=== PATIENT | female | born 1950 | race Two or more races ===

== ENCOUNTER 2021-12-23 14:54 | Inpatient (IN) | payer MEDICARE, OTHER ==
[~2021-12-23] VITALS: Ht 172.7 cm; Wt 107.5 kg
[2021-12-23 16:36] LABS: BASOPHILS % (AUTO) 0.2 % (0.0-2.0); HEMATOCRIT 24 % (33-45); HEMOGLOBIN 7.8 g/dL (11.5-14.8); LYMPHOCYTES # (AUTO) 0.4 K/uL (0.8-4.8); LYMPHOCYTES % (AUTO) 3.7 % (20.0-44.0); MEAN CORPUSCULAR HGB CONC 32 g/dl (31.0-36.0); MEAN CORPUSCULAR VOLUME 96 fL (82-100); MONOCYTES # (AUTO) 0.5 K/uL (0.1-1.30); MONOCYTES % (AUTO) 5.6 % (2.0-12.0); NEUTROPHILS # (AUTO) 8.8 K/uL (1.8-8.9); NEUTROPHILS % (AUTO) 90.5 % (43.0-81.0); PLATELET COUNT (AUTO) 63 K/uL (150-450); RED BLOOD CELL COUNT(AUTO) 2.54 MIL/uL (4.0-5.2); WHITE BLOOD COUNT (AUTO) 9.7 K/uL (4.3-11.0)
[2021-12-23 17:02] LABS: ALANINE AMINOTRANSFERASE 56 U/L (12-78); ALBUMIN 2.8 g/dL (3.4-5.0); ALCOHOL, BLOOD < 3 mg/dL (0-0); ALKALINE PHOSPHATASE 166 U/L (46-116); ASPARTATE AMINOTRANSFERASE 192 U/L (15-37); BILIRUBIN,DIRECT 1.3 mg/dL (0.0-0.2); CARBON DIOXIDE 19 mmol/L (21-32); CHLORIDE 108 mmol/L (98-107); CREATININE 2.5 mg/dL (0.6-1.3); GLUCOSE 158 mg/dL (74-106); POTASSIUM 4.8 mmol/L (3.5-5.1); SODIUM SERUM 143 mmol/L (136-145); TOTAL PROTEIN, SERUM 6.5 g/dL (6.4-8.2)
[2021-12-23 17:06] LABS: CREATINE KINASE, TOTAL 4534 U/L (26-192); THYROID STIMULATING HORMONE 4.328 uIU/mL (0.358-3.74)
[2021-12-23 17:19] LABS: UREA NITROGEN, BLOOD 81 mg/dL (7-18)
[2021-12-23 17:26] LABS: ACETAMINOPHEN < 2 ug/ml (10-30)
[2021-12-23 17:52] LABS: BILIRUBIN,URINE NEGATIVE (NEGATIVE); COLOR,URINE YELLOW (YELLOW); LEUKOCYTE ESTERASE ,URINE NEGATIVE (NEGATIVE); NITRITE, URINE NEGATIVE (NEGATIVE); PROTEIN,URINE TRACE mg/dl (NEGATIVE); UGLUCOSE NEGATIVE (NEGATIVE)
[2021-12-23 17:58] LABS: BACTERIA,URINE RARE /HPF (None Seen); RBC,URINE 21-50 /HPF (0-2); WBC,URINE 0-2 /HPF (0-3); YEAST,URINE Few /HPF (None Seen)
[2021-12-23] MEDS ORDERED: INSU100I14 SQ (18:12)
[2021-12-23] MEDS ORDERED: POLY15DR40 EACHEYE (18:12)
[2021-12-23] MEDS ORDERED: SENN-261 PO (18:12)
[2021-12-23] MEDS ORDERED: PREG-57 PO (18:12)
[2021-12-23] MEDS ORDERED: LIDO700A30 TP (18:12)
[2021-12-23] MEDS ORDERED: FURO20TA4 PO (18:12)
[2021-12-23] MEDS ORDERED: ERGO500093 PO (18:12)
[2021-12-23] MEDS ORDERED: INSU100I19 SQ (18:12)
[2021-12-23] MEDS ORDERED: PANT40TA49 PO (18:12)
[2021-12-23] MEDS ORDERED: ALPR0.5T8 PO (18:12)
[2021-12-23] MEDS ORDERED: INSU100V39 SQ (18:12)
[2021-12-23] MEDS ORDERED: SUCR1ORA6 PO (18:12)
[2021-12-23] MEDS ORDERED: HYDR-3980 PO (18:12)
[2021-12-23 18:26] LABS: BAND % (MANUAL) 11 % (0.0-5.0); LYMPHOCYTES % (MANUAL) 7 % (16-48); MONOCYTES % (MANUAL) 1 % (0-11.0); NEUTROPHILS % (MANUAL) 81 (42-76)
[2021-12-23] MEDS ORDERED: IV NS 0.9% 1,000 ML BAG IV ONE (18:30)
[2021-12-23 18:42] LABS: SERUM AMMONIA 20 umol/L (11-32)
[2021-12-23] MEDS ORDERED: ASPIRIN 300 MG/SUPP.RECT RC ONE (19:00)
[2021-12-23 20:00] VITALS: BP 125/56
[2021-12-23] MEDS ORDERED: FUROSEMIDE 20 MG/2 ML VIAL IV SCH (20:00)
[2021-12-23] MEDS ORDERED: ACETAMINOPHEN 650 MG/SUPP.RECT RC PRN (20:00)
[2021-12-23] MEDS ORDERED: ONDANSETRON HCL/PF 4 MG/2 ML VIAL IVP PRN (20:00)
[2021-12-23] MEDS ORDERED: Z GUARD REMEDY 4 OZ OINT TP PRN (20:00)
[2021-12-23] MEDS ORDERED: ACETAMINOPHEN 325 MG TABLET PO PRN (20:00)
[2021-12-23] MEDS ORDERED: FUROSEMIDE 40 MG/4 ML VIAL IV SCH (21:30)
[2021-12-23] MEDS ORDERED: IV LR 500 ML IV ONE (21:30)
[2021-12-23] MEDS: KETOROLAC TROMETHAMINE INJ 30 MG/ML VIAL IV PRN (22:52)
[2021-12-24] VITALS (71 sets, daily range): BP systolic 80–145; BP diastolic 37–79
[2021-12-24] MEDS ORDERED: DEXTROSE 50%-WATER 50 ML DISP.SYRIN IV PRN ×2 (00:30)
[2021-12-24] MEDS ORDERED: LIDOCAINE 5% (PATCH) 1 EA PATCH TP PRN (00:30)
[2021-12-24] MEDS: FUROSEMIDE 40 MG/4 ML VIAL IV SCH ×3 (01:28→16:14)
[2021-12-24] MEDS ORDERED: CEFEPIME 1 GM in IV D5W 50 ML IV SCH ×2 (01:30→21:00)
[2021-12-24] MEDS ORDERED: CEFEPIME 1 GM VIAL ONE ×2 (02:09→22:06)
[2021-12-24] MEDS: BLOOD SUGAR DIAGNOSTIC 1 EACH STRIP IN SCH ×7 (06:28→22:00)
[2021-12-24 06:43] LABS: CALCIUM, SERUM 8.5 mg/dL (8.5-10.1); CREATININE 2.5 mg/dL (0.6-1.3); POTASSIUM 4.4 mmol/L (3.5-5.1)
[2021-12-24 06:46] LABS: MAGNESIUM 2.4 mg/dL (1.8-2.4); PHOSPHORUS 4.3 mg/dL (2.5-4.9)
[2021-12-24] MEDS ORDERED: PANTOPRAZOLE 40 MG TABLET.DR PO SCH (07:30)
[2021-12-24 07:37] LABS: THYROID STIMULATING HORMONE 3.014 uIU/mL (0.358-3.74)
[2021-12-24] MEDS ORDERED: IV NS 0.9% 250 ML IV ONE (08:30)
[2021-12-24] MEDS ORDERED: ERGOCALCIFEROL (VITAMIN D 2) 50,000 UNIT CAPSULE PO SCH (09:00)
[2021-12-24] MEDS: INSULIN ASPART/LISPRO 100 UNIT/ML CARTRIDGE SQ SCH ×3 (09:00→16:14)
[2021-12-24] MEDS: INSULIN GLARGINE, 100 UNIT/ML CARTRIDGE SQ SCH ×2 (09:00→16:13)
[2021-12-24] MEDS: SUCRALFATE 1 G/10 ML UDC PO SCH ×4 (09:00→21:00)
[2021-12-24 09:14] LABS: EOSINOPHILS % (AUTO) 0.6 % (0.0-6.0); HEMATOCRIT 22 % (33-45); LYMPHOCYTES # (AUTO) 0.1 K/uL (0.8-4.8); LYMPHOCYTES % (AUTO) 10.5 % (20.0-44.0); MEAN CORPUSCULAR HGB CONC 32 g/dl (31.0-36.0); MEAN CORPUSCULAR VOLUME 98 fL (82-100); MONOCYTES % (AUTO) 2.2 % (2.0-12.0); NEUTROPHILS % (AUTO) 86.7 % (43.0-81.0); RED BLOOD CELL COUNT(AUTO) 2.21 MIL/uL (4.0-5.2)
[2021-12-24 09:19] LABS: HEMOGLOBIN 6.8 g/dL (11.5-14.8); WHITE BLOOD COUNT (AUTO) 1.2 K/uL (4.3-11.0)
[2021-12-24 09:20] LABS: PLATELET COUNT (AUTO) 38 K/uL (150-450)
[2021-12-24] MEDS: PANTOPRAZOLE 40 MG VIAL IV SCH (09:24)
[2021-12-24] MEDS ORDERED: NOREPINEPHRINE 8 MG in IV NS 0.9% 242 ML IV PRN (10:00)
[2021-12-24] MEDS: ASPIRIN 300 MG/SUPP.RECT RC SCH (10:05)
[2021-12-24] MEDS ORDERED: SODIUM BICARBONATE SYR 50 MEQ/50 ML DISP.SYRIN IV STA (12:47)
[2021-12-24] MEDS: Sodium Bicarbonate 100 MEQ in IV D5W 1,000 ML IV SCH (14:16)
[2021-12-24] MEDS: NOREPINEPHRINE 8 MG in IV NS 0.9% 242 ML IV PRN ×2 (14:29→21:20)
[2021-12-24 15:49] LABS: BAND % (MANUAL) 4 % (0.0-5.0); LYMPHOCYTES % (MANUAL) 12 % (16-48)
[2021-12-24 15:50] LABS: MONOCYTES % (MANUAL) 2 % (0-11.0); NEUTROPHILS % (MANUAL) 82 (42-76)
[2021-12-24] MEDS: CLOTRIMAZOLE 1% 15 GM TUBE TP SCH (16:14)
[2021-12-24] MEDS: KETOROLAC TROMETHAMINE INJ 30 MG/ML VIAL IV PRN (20:14)
[2021-12-24] MEDS: SENNOSIDES 8.6 MG TABLET PO SCH (21:59)
[2021-12-24] MEDS: PREGABALIN 25 MG CAPSULE PO SCH (21:59)
[2021-12-24] MEDS: CEFEPIME 2 GM in IV D5W 100 ML IV SCH (22:10)
[2021-12-25] VITALS (92 sets, daily range): BP systolic 81–133; BP diastolic 30–72
[2021-12-25] MEDS: BLOOD SUGAR DIAGNOSTIC 1 EACH STRIP IN SCH ×6 (00:44→21:59)
[2021-12-25] MEDS: INSULIN REGULAR, HUMAN 100 UNIT/ML 3 ML VIAL SQ PRN ×2 (00:44→06:49)
[2021-12-25] MEDS ORDERED: NOREPINEPHRINE 8MG/250ML RTU 250 ML IV ONE (03:17)
[2021-12-25] MEDS: NOREPINEPHRINE 8 MG in IV NS 0.9% 242 ML IV PRN ×3 (03:34→18:12)
[2021-12-25] MEDS: Sodium Bicarbonate 100 MEQ in IV D5W 1,000 ML IV SCH ×2 (04:26→18:35)
[2021-12-25 04:36] LABS: BASOPHILS % (AUTO) 0.2 % (0.0-2.0); EOSINOPHILS % (AUTO) 3.6 % (0.0-6.0); HEMATOCRIT 31 % (33-45); LYMPHOCYTES # (AUTO) 0.4 K/uL (0.8-4.8); LYMPHOCYTES % (AUTO) 5.3 % (20.0-44.0); MEAN CORPUSCULAR HGB CONC 32 g/dl (31.0-36.0); MEAN CORPUSCULAR VOLUME 96 fL (82-100); MONOCYTES # (AUTO) 0.5 K/uL (0.1-1.30); MONOCYTES % (AUTO) 6.2 % (2.0-12.0); NEUTROPHILS # (AUTO) 6.8 K/uL (1.8-8.9); NEUTROPHILS % (AUTO) 84.7 % (43.0-81.0); RED BLOOD CELL COUNT(AUTO) 3.23 MIL/uL (4.0-5.2); WHITE BLOOD COUNT (AUTO) 8.1 K/uL (4.3-11.0)
[2021-12-25 05:00] LABS: PLATELET COUNT (AUTO) 43 K/uL (150-450)
[2021-12-25 05:01] LABS: BILIRUBIN,TOTAL 5.5 mg/dL (0.2-1.0); CALCIUM, SERUM 8.6 mg/dL (8.5-10.1); CREATININE 2.8 mg/dL (0.6-1.3); MAGNESIUM 2.7 mg/dL (1.8-2.4); PHOSPHORUS 4.9 mg/dL (2.5-4.9); POTASSIUM 4.4 mmol/L (3.5-5.1); TOTAL PROTEIN, SERUM 5.2 g/dL (6.4-8.2)
[2021-12-25 05:02] LABS: BAND % (MANUAL) 2 % (0.0-5.0); EOSINOPHILS % (MANUAL) 4 % (0-4); LYMPHOCYTES % (MANUAL) 8 % (16-48); MONOCYTES % (MANUAL) 4 % (0-11.0)
[2021-12-25 05:03] LABS: NEUTROPHILS % (MANUAL) 82 (42-76)
[2021-12-25 05:10] LABS: BILIRUBIN,URINE NEGATIVE (NEGATIVE); COLOR,URINE YELLOW (YELLOW); LEUKOCYTE ESTERASE ,URINE TRACE (NEGATIVE); NITRITE, URINE NEGATIVE (NEGATIVE); PROTEIN,URINE 30 mg/dl (NEGATIVE); UGLUCOSE NEGATIVE (NEGATIVE); UROBILINOGEN,URINE 0.2 EU/dL (0.2)
[2021-12-25 05:26] LABS: CREATININE, URINE 132.2 MG/DL (30.0-125.0)
[2021-12-25 05:46] LABS: BACTERIA,URINE Many /HPF (None Seen); SQUAMOUS EPITHELIAL CELL,UR Many /HPF (None Seen)
[2021-12-25 05:47] LABS: YEAST,URINE Many /HPF (None Seen)
[2021-12-25 06:04] LABS: OCCULT BLOOD STOOL POSITIVE (NEGATIVE)
[2021-12-25] MEDS: INSULIN ASPART/LISPRO 100 UNIT/ML CARTRIDGE SQ SCH ×3 (09:00→17:40)
[2021-12-25] MEDS: PANTOPRAZOLE 40 MG VIAL IV SCH (09:00)
[2021-12-25] MEDS: INSULIN GLARGINE, 100 UNIT/ML CARTRIDGE SQ SCH ×2 (09:00→17:00)
[2021-12-25] MEDS: SUCRALFATE 1 G/10 ML UDC PO SCH ×4 (09:00→21:00)
[2021-12-25] MEDS: ASPIRIN 300 MG/SUPP.RECT RC SCH (09:00)
[2021-12-25] MEDS: FUROSEMIDE 40 MG/4 ML VIAL IV SCH ×2 (09:02→17:38)
[2021-12-25] MEDS: CLOTRIMAZOLE 1% 15 GM TUBE TP SCH ×2 (09:19→17:17)
[2021-12-25 12:13] LABS: ABG BASE EXCESS -10.6 mmol/L; ABG PCO2 36.7 mmHg (35.0-45.0); ABG PH 7.251 (7.350-7.450); ABG PO2 131.2 mmHg (75.0-100.0); AaDO2 75.7 mmHg; COHb 1.2 % (0.5-1.5); MetHb 0.2 % (0.0-1.5); O2Hb 96.6 % (94.0-97.0); SITE, ABG Right Brachial; VENT MODE, BG 4l nasal can
[2021-12-25] MEDS ORDERED: IV NS 0.9% 250 ML IV ONE (12:30)
[2021-12-25] MEDS: ALBUMIN 25% 25 GM in PREMIX 1 EA IV SCH ×2 (13:31→18:24)
[2021-12-25] MEDS: KETOROLAC TROMETHAMINE INJ 30 MG/ML VIAL IV PRN (18:13)
[2021-12-25] MEDS: CEFEPIME 2 GM in IV D5W 100 ML IV SCH (21:43)
[2021-12-25] MEDS: SENNOSIDES 8.6 MG TABLET PO SCH (22:30)
[2021-12-25] MEDS: PREGABALIN 25 MG CAPSULE PO SCH (22:30)
[2021-12-26] VITALS (96 sets, daily range): BP systolic 85–132; BP diastolic 18–101
[2021-12-26] MEDS: ALBUMIN 25% 25 GM in PREMIX 1 EA IV SCH ×2 (01:03→06:20)
[2021-12-26] MEDS: NOREPINEPHRINE 8 MG in IV NS 0.9% 242 ML IV PRN ×3 (03:58→21:32)
[2021-12-26] MEDS: KETOROLAC TROMETHAMINE INJ 30 MG/ML VIAL IV PRN ×3 (04:44→22:18)
[2021-12-26 04:56] LABS: EOSINOPHILS % (AUTO) 0.5 % (0.0-6.0); HEMATOCRIT 27 % (33-45); HEMOGLOBIN 8.5 g/dL (11.5-14.8); LYMPHOCYTES % (AUTO) 5.5 % (20.0-44.0); MEAN CORPUSCULAR HGB CONC 31 g/dl (31.0-36.0); MEAN CORPUSCULAR VOLUME 98 fL (82-100); MONOCYTES # (AUTO) 0.9 K/uL (0.1-1.30); MONOCYTES % (AUTO) 4.7 % (2.0-12.0); NEUTROPHILS % (AUTO) 89.3 % (43.0-81.0); RED BLOOD CELL COUNT(AUTO) 2.78 MIL/uL (4.0-5.2)
[2021-12-26 05:06] LABS: PLATELET COUNT (AUTO) 39 K/uL (150-450)
[2021-12-26 05:23] LABS: CALCIUM, SERUM 9.1 mg/dL (8.5-10.1); CREATININE 3.1 mg/dL (0.6-1.3); MAGNESIUM 2.6 mg/dL (1.8-2.4); POTASSIUM 4.6 mmol/L (3.5-5.1)
[2021-12-26 05:25] LABS: BAND % (MANUAL) 3 % (0.0-5.0); EOSINOPHILS % (MANUAL) 1 % (0-4); LYMPHOCYTES % (MANUAL) 7 % (16-48); MONOCYTES % (MANUAL) 3 % (0-11.0)
[2021-12-26 05:26] LABS: NEUTROPHILS % (MANUAL) 86 (42-76)
[2021-12-26] MEDS: Sodium Bicarbonate 100 MEQ in IV D5W 1,000 ML IV SCH ×2 (07:40→21:31)
[2021-12-26] MEDS: BLOOD SUGAR DIAGNOSTIC 1 EACH STRIP IN SCH ×5 (08:07→22:08)
[2021-12-26] MEDS: FUROSEMIDE 40 MG/4 ML VIAL IV SCH ×2 (08:23→17:22)
[2021-12-26] MEDS: PANTOPRAZOLE 40 MG VIAL IV SCH (08:23)
[2021-12-26] MEDS: ASPIRIN 300 MG/SUPP.RECT RC SCH (08:23)
[2021-12-26] MEDS: INSULIN GLARGINE, 100 UNIT/ML CARTRIDGE SQ SCH ×2 (08:27→17:32)
[2021-12-26] MEDS: CLOTRIMAZOLE 1% 15 GM TUBE TP SCH ×2 (08:31→17:22)
[2021-12-26] MEDS: SUCRALFATE 1 G/10 ML UDC PO SCH ×4 (08:45→22:00)
[2021-12-26] MEDS: INSULIN ASPART/LISPRO 100 UNIT/ML CARTRIDGE SQ SCH ×3 (08:45→17:00)
[2021-12-26] MEDS: SILDENAFIL CITRATE 20 MG TABLET PO SCH ×2 (13:00→16:12)
[2021-12-26] MEDS: FENTANYL PF 100MCG/2ML AMPUL IV PRN ×2 (13:26→15:45)
[2021-12-26] MEDS: MIDODRINE HCL (5MG) 5 MG TABLET NG SCH (17:30)
[2021-12-26] MEDS: CEFEPIME 2 GM in IV D5W 100 ML IV SCH (21:32)
[2021-12-26] MEDS: SENNOSIDES 8.6 MG TABLET PO SCH (22:00)
[2021-12-26] MEDS: PREGABALIN 25 MG CAPSULE PO SCH (22:00)
[2021-12-26] MEDS: INSULIN REGULAR, HUMAN 100 UNIT/ML 3 ML VIAL SQ PRN (22:12)
[2021-12-27] VITALS (49 sets, daily range): BP systolic 85–143; BP diastolic 24–56
[2021-12-27 05:02] LABS: EOSINOPHILS % (AUTO) 1.6 % (0.0-6.0); HEMATOCRIT 24 % (33-45); LYMPHOCYTES # (AUTO) 0.7 K/uL (0.8-4.8); LYMPHOCYTES % (AUTO) 6.6 % (20.0-44.0); MEAN CORPUSCULAR HGB CONC 33 g/dl (31.0-36.0); MEAN CORPUSCULAR VOLUME 95 fL (82-100); MONOCYTES # (AUTO) 0.3 K/uL (0.1-1.30); MONOCYTES % (AUTO) 3.1 % (2.0-12.0); NEUTROPHILS # (AUTO) 9.7 K/uL (1.8-8.9); NEUTROPHILS % (AUTO) 88.7 % (43.0-81.0); RED BLOOD CELL COUNT(AUTO) 2.54 MIL/uL (4.0-5.2)
[2021-12-27 05:03] LABS: CALCIUM, SERUM 8.9 mg/dL (8.5-10.1); MAGNESIUM 2.6 mg/dL (1.8-2.4); PHOSPHORUS 4.2 mg/dL (2.5-4.9); POTASSIUM 4.6 mmol/L (3.5-5.1)
[2021-12-27 05:53] LABS: PLATELET COUNT (AUTO) 24 K/uL (150-450)
[2021-12-27] MEDS: PANTOPRAZOLE 40 MG VIAL IV SCH (08:36)
[2021-12-27] MEDS: FUROSEMIDE 40 MG/4 ML VIAL IV SCH (08:36)
[2021-12-27] MEDS: MIDODRINE HCL (5MG) 5 MG TABLET NG SCH (08:37)
[2021-12-27] MEDS: SUCRALFATE 1 G/10 ML UDC PO SCH (09:00)
[2021-12-27] MEDS: SILDENAFIL CITRATE 20 MG TABLET PO SCH (09:00)
[2021-12-27] MEDS: NOREPINEPHRINE 8 MG in IV NS 0.9% 242 ML IV PRN (09:14)
[2021-12-27 09:39] LABS: BAND % (MANUAL) 6 % (0.0-5.0); NEUTROPHILS % (MANUAL) 83 (42-76)
[2021-12-27 09:40] LABS: EOSINOPHILS % (MANUAL) 1 % (0-4); LYMPHOCYTES % (MANUAL) 6 % (16-48); MONOCYTES % (MANUAL) 4 % (0-11.0)
[2021-12-27] MEDS: BLOOD SUGAR DIAGNOSTIC 1 EACH STRIP IN SCH (09:48)
[2021-12-27] MEDS: CLOTRIMAZOLE 1% 15 GM TUBE TP SCH ×2 (09:58→17:00)
[2021-12-27] MEDS: INSULIN ASPART/LISPRO 100 UNIT/ML CARTRIDGE SQ SCH (10:00)
[2021-12-27] MEDS: INSULIN GLARGINE, 100 UNIT/ML CARTRIDGE SQ SCH (10:00)
[2021-12-27] MEDS: FENTANYL PF 100MCG/2ML AMPUL IV PRN (10:06)
[2021-12-27] MEDS ORDERED: LORAZEPAM INJ 2 MG/ML VIAL IV STA (10:46)
[2021-12-27] MEDS ORDERED: Sodium Bicarbonate 100 MEQ in IV D5W 1,000 ML IV SCH (11:00)
[2021-12-27] MEDS ORDERED: LORAZEPAM INJ 2 MG/ML VIAL IV PRN (11:00)
[2021-12-27] MEDS ORDERED: MORPHINE SULFATE INJ 4 MG/ML DISP.SYRIN IV STA (12:04)
[2021-12-27] MEDS ORDERED: MORPHINE SULFATE PF DRIP 250 MG in IV D5W 240 ML IV PRN (13:00)
[2021-12-27] MEDS ORDERED: CEFTRIAXONE 2 G in IV D5W 100 ML IV SCH (21:00)
[2021-12-27] MEDS ORDERED: KEY,NONCONTROL,TO KEEP IN PYXI 1 EA MC ONE (21:32)
== END 2021-12-27 19:37 | disposition hospice, inpatient (51) | DRG 280 ==
LOC: ER 15:00 → EDBD 15:00 → TELE-TD 19:42 → TELE1 21:11 → ICU 12-24 09:42 → MED 12-27 16:48
PROVIDERS: ADMIT Registered Nurse; ATTEND Nurse Practitioner Acute Care
PROC: 05H933Z Insertion of Infusion Device into Right Brachial Vein, Percutaneous Approach (ICD-10-PCS; principal; 2021-12-24)
PROC: 30233N1 Transfusion of Nonautologous Red Blood Cells into Peripheral Vein, Percutaneous Approach (ICD-10-PCS; 2021-12-24)
PROC: 06HY33Z Insertion of Infusion Device into Lower Vein, Percutaneous Approach (ICD-10-PCS; 2021-12-26)
PROC: 5A1D70Z Performance of Urinary Filtration, Intermittent, Less than 6 Hours Per Day (ICD-10-PCS; 2021-12-27)
DX: I13.0 Hypertensive heart and chronic kidney disease with heart failure and stage 1 through stage 4 chronic kidney disease, or unspecified chronic kidney disease (principal); G92.8 Other toxic encephalopathy; I21.A1 Myocardial infarction type 2; J15.9 Unspecified bacterial pneumonia; J96.01 Acute respiratory failure with hypoxia; N17.0 Acute kidney failure with tubular necrosis; I50.33 Acute on chronic diastolic (congestive) heart failure; E87.2 Acidosis; M62.82 Rhabdomyolysis; D61.818 Other pancytopenia; R78.81 Bacteremia; N13.30 Unspecified hydronephrosis; R18.8 Other ascites; R57.9 Shock, unspecified; K21.9 Gastro-esophageal reflux disease without esophagitis; G89.4 Chronic pain syndrome; Z20.822 Contact with and (suspected) exposure to COVID-19; K74.60 Unspecified cirrhosis of liver; Z92.89 Personal history of other medical treatment; W18.30XA Fall on same level, unspecified, initial encounter; Y92.009 Unspecified place in unspecified non-institutional (private) residence as the place of occurrence of the external cause; Z88.5 Allergy status to narcotic agent; Z79.4 Long term (current) use of insulin; Z79.899 Other long term (current) drug therapy; R21 Rash and other nonspecific skin eruption; S40.829A Blister (nonthermal) of unspecified upper arm, initial encounter; S80.829A Blister (nonthermal), unspecified lower leg, initial encounter; X58.XXXA Exposure to other specified factors, initial encounter; Y92.9 Unspecified place or not applicable; E11.22 Type 2 diabetes mellitus with diabetic chronic kidney disease; N18.9 Chronic kidney disease, unspecified; I50.9 Heart failure, unspecified; R62.7 Adult failure to thrive; Z66 Do not resuscitate; Z51.5 Encounter for palliative care; G47.33 Obstructive sleep apnea (adult) (pediatric); E66.01 Morbid (severe) obesity due to excess calories; Z68.38 Body mass index [BMI] 38.0-38.9, adult; I27.21 Secondary pulmonary arterial hypertension; B96.89 Other specified bacterial agents as the cause of diseases classified elsewhere; S90.821A Blister (nonthermal), right foot, initial encounter; D63.8 Anemia in other chronic diseases classified elsewhere; I42.9 Cardiomyopathy, unspecified; I27.81 Cor pulmonale (chronic)
CPT/HCPCS: 36410; 36415; 36600; 70450-TC; 71045-TC; 72125-TC; 76770-TC; 80048-TC; 80053-TC; 80061-TC; 80076-TC; 81001; 82140-TC; 82272-TC; 82550-TC; 82553; 82570-TC; 82962-TC; 83605-TC; 83735-TC; 83880; 84100-TC; 84300-TC; 84443-TC; 84484-TC; 85025-TC; 86706; 86850-TC; 87040-TC; 87081-TC; 87086-TC; 87186-TC; 87340; 90935-TC; 93307-TC; 93971-TC; 94799-TC; A4216; A4217; A6253; A6403; C9113; C9803; G0378; G0480; J0692; J0696; J1815; J1885; J1940; J2060; J2270; J2274; J3010; J3490; J7030; J7040; J7050; J7060; J7070; J7120; P9016; P9047

== ENCOUNTER 2021-12-27 21:45 | Inpatient (IN) | payer OTHER ==
[~2021-12-27] VITALS: Ht 172.7 cm; Wt 119.3 kg
--- NOTE | 2021-12-27 21:30 | NUR ---
RN NOTES PT TIME OF AT 1936, PRONOUNCED BY THANH STEWART, RUSTY. FAMILY IN ROOM AND AWARE. GIVEN TIME TO GRIEVE. CHARGE NURSES, DENA AND BRODY MADE AWARE. NURSING MOTOR EXPRESS CLERK, VANESSA, MADE AWARE. ADMITTING, RITESH, MADE AWARE. CONTACTED [facility] AT 1954. WAS TOLD I WOULD RECEIVE A CALL BACK. REFERRAL ID [id number]. CONTACTED [facility] @ 2020. WAS TOLD THAT STENCIL MACHINE OPERATOR WOULD CONTACT THE FAMILY. ALSO SAID THEY WOULD ARRANGE TRANSPORTATION. FINISHED CALL WITH [facility] AT 2114. NARCISA, FAMILY RESTAURANT LINE SERVER, SAID PATIENT IS NOT ELIGIBLE. REFERRAL ID IS [id number]. POST-MORTEM CARE DONE. FABIENNE VELASCO [facility], RETRIEVED BODY AT APPROXIMATELY 2145. Addendum: 12/27/21 at 2238 by ADEEL IRWIN RN NO BELONGINGS.
[~2021-12-27 21:45] MED LIST: ALPR0.5T8 PO; ERGO500093 PO; FURO20TA4 PO; HYDR-3980 PO; INSU100I14 SQ; INSU100I19 SQ; INSU100V39 SQ; LIDO700A30 TP; PANT40TA49 PO; POLY15DR40 EACHEYE; PREG-57 PO; SENN-261 PO; SUCR1ORA6 PO
== END 2021-12-27 21:50 | DRG 194 ==
LOC: HOSPICE 21:45
PROVIDERS: ADMIT Nurse Practitioner Acute Care; ATTEND Nurse Practitioner Acute Care
DX: I11.0 Hypertensive heart disease with heart failure (principal); J96.01 Acute respiratory failure with hypoxia; G92.8 Other toxic encephalopathy; K72.10 Chronic hepatic failure without coma; I21.A1 Myocardial infarction type 2; R78.81 Bacteremia; E87.2 Acidosis; J15.9 Unspecified bacterial pneumonia; I27.21 Secondary pulmonary arterial hypertension; I50.31 Acute diastolic (congestive) heart failure; I27.81 Cor pulmonale (chronic); Z51.5 Encounter for palliative care; E11.9 Type 2 diabetes mellitus without complications; M62.82 Rhabdomyolysis; R21 Rash and other nonspecific skin eruption; N17.9 Acute kidney failure, unspecified; K21.9 Gastro-esophageal reflux disease without esophagitis; K74.60 Unspecified cirrhosis of liver; Z98.890 Other specified postprocedural states; G89.4 Chronic pain syndrome; R62.7 Adult failure to thrive; Z86.59 Personal history of other mental and behavioral disorders; E66.01 Morbid (severe) obesity due to excess calories; Z68.38 Body mass index [BMI] 38.0-38.9, adult; Z66 Do not resuscitate; B96.89 Other specified bacterial agents as the cause of diseases classified elsewhere; D64.9 Anemia, unspecified
CPT/HCPCS: G0378